=== PATIENT | male | born 1985 | race Caucasian/White ===

== ENCOUNTER → 2017-05-27 | Outpatient (CLI) | payer BC ==
--- NOTE | 2017-05-27 19:57 | US ---
EXAMINATION TYPE: US venous doppler duplex LE RT DATE OF EXAM: 05/27/2017 7:26 PM COMPARISON: NONE CLINICAL HISTORY: RLE R22.41 Swelling. SIDE PERFORMED: Right TECHNIQUE: The lower extremity deep venous system is examined utilizing real time linear array sonog elsa with graded compression, doppler sonography and color-flow sonography. VESSELS IMAGED: External Iliac Vein (EIV) Common Femoral Vein Deep Femoral Vein Greater Saphenous Vein * Femoral Vein Popliteal Vein Small Saphenous Vein * Proximal Calf Veins (* superficial vessels) Right Leg: Negative for DVT No evidence of DVT right leg IMPRESSION: Negative exam. No evidence of deep venous thrombosis in the right leg.
== END | disposition home or self-care (01) ==
LOC: RADUSMAIN 18:33
PROVIDERS: ATTEND Family Medicine
DX: R22.41 Localized swelling, mass and lump, right lower limb (principal)

== ENCOUNTER → 2018-12-28 | Outpatient (CLI) | payer BC ==
--- NOTE | 2018-12-29 07:47 | US ---
EXAMINATION TYPE: US venous doppler duplex LE RT DATE OF EXAM: 12/28/2018 6:39 PM COMPARISON: NONE CLINICAL HISTORY: R60.0 Localized edema,R25.2 Spasm. Right leg pain and spasm with edema. SIDE PERFORMED: Right TECHNIQUE: The lower extremity deep venous system is examined utilizing real time linear array sonog elsa with graded compression, doppler sonography and color-flow sonography. VESSELS IMAGED: External Iliac Vein (EIV) Common Femoral Vein Deep Femoral Vein Greater Saphenous Vein * Femoral Vein Popliteal Vein Small Saphenous Vein * Proximal Calf Veins (* superficial vessels) Right Leg: Negative for DVT No evidence of DVT right leg. IMPRESSION: 1. No diagnostic evidence of DVT as visualized.
== END | disposition home or self-care (01) ==
LOC: RADUSMAIN 18:06
PROVIDERS: ATTEND Family Medicine
DX: R60.0 Localized edema (principal); R25.2 Cramp and spasm

== ENCOUNTER 2019-01-16 22:15 | Emergency (ER) | payer BC ==
--- NOTE | 2019-01-16 23:48 | US ---
EXAM: US Duplex Right Lower Extremity Veins CLINICAL HISTORY: Pain in the right calf TECHNIQUE: Real-time duplex ultrasound scan of the right lower extremity veins integrating B-mode two-dimensional vascular structure, Doppler spectral analysis, color flow Doppler imaging and compression. COMPARISON: Ultrasound right lower extremity dated 05/27/2017 FINDINGS: Deep veins: Occlusive thrombus noted within the right popliteal vein. Superficial veins: Unremarkable. No thrombus in the visualized great saphenous vein. Soft tissues: No acute findings. No popliteal cyst. IMPRESSION: Occlusive thrombus noted within the right popliteal vein.
[2019-01-17] MEDS ORDERED: RIVAROXABAN 15 MG TAB PO STA (00:16)
--- NOTE | 2019-01-17 00:18 | ED ---
General Adult HPI - General Chief complaint: Extremity Injury, Lower Stated complaint: Leg Pain Time Seen by Provider: 01/17/19 00:06 Source: patient Mode of arrival: ambulatory Limitations: no limitations - History of Present Illness Initial comments: This patient is a 33-year-old man who presents with pain in his right calf that he states has come on over the past couple of weeks and has caused him to have concern about possible DVT. Patient indicates posterior aspect of the leg. Pain is aching, constant, worse with palpation. No fever or chills. The patient states that he had seen his physician and he also had an duplex Doppler of his leg between week and 2 weeks ago but the pain has not improved. -: days(s) Location: right, lower extremity Radiation: non-radiation Quality: aching Consistency: constant Improves with: none Worsens with: movement Associated Symptoms: denies other symptoms - Related Data Previous Rx's Medication Instructions Recorded Cephalexin [Keflex] 500 mg PO Q6HR #40 cap 04/08/15 Ibuprofen [Motrin] 600 mg PO Q6HR PRN #20 tab 04/08/15 Sulfamethox-Tmp 800-160Mg [Bactrim 2 each PO Q12HR #56 tab 04/08/15 DS 800-160 mg] Azithromycin [Zithromax Z-pack] 250 mg PO DIRECTED #6 tab 01/17/19 Ibuprofen 800 mg PO TID #20 tablet 01/17/19 Rivaroxaban [Xarelto] 15 mg PO BID #42 tab 01/17/19 Allergies Allergy/AdvReac Type Severity Reaction Status Date / Time No Known Allergies Allergy Verified 01/16/19 22:28 Review of Systems ROS Statement: Those systems with pertinent positive or pertinent negative responses have been documented in the HPI. ROS Other: All systems not noted in ROS Statement are negative. Constitutional: Denies: fever, chills Respiratory: Denies: cough, dyspnea Cardiovascular: Denies: chest pain, palpitations, edema, syncope Gastrointestinal: Denies: abdominal pain, nausea, vomiting, diarrhea Musculoskeletal: Denies: back pain Skin: Denies: rash Neurological: Denies: headache, weakness, numbness Past Medical History Past Medical History: No Reported History History of Any Multi-Drug Resistant Organisms: None Reported Past Surgical History: Hernia Repair Additional Past Surgical History / Comment(s): scope to right knee 2009, Past Psychological History: No Psychological Hx Reported Smoking Status: Never smoker Past Alcohol Use History: Occasional Past Drug Use History: None Reported General Exam Limitations: no limitations General appearance: alert, in no apparent distress Head exam: Present: atraumatic, normocephalic Eye exam: Present: normal appearance. Absent: scleral icterus, conjunctival injection ENT exam: Present: normal oropharynx Neck exam: Present: normal inspection Cardiovascular Exam: Present: regular rate, normal rhythm, normal heart sounds. Absent: systolic murmur, diastolic murmur, rubs, gallop GI/Abdominal exam: Present: soft. Absent: distended, tenderness, guarding, rebound, rigid, mass Extremities exam: Present: normal inspection, tenderness, normal capillary refill, calf tenderness (Right). Absent: pedal edema Back exam: Present: normal inspection. Absent: CVA tenderness (R), CVA tenderness (L) Neurological exam: Present: alert Skin exam: Present: warm, dry, intact, normal color. Absent: rash Course Vital Signs 01/16/19 01/17/19 22:24 03:24 Temperature 99.6 F 98.2 F Pulse Rate 119 H 99 Respiratory 17 20 Rate Blood Pressure 151/95 160/94 O2 Sat by Pulse 96 94 L Oximetry Medical Decision Making - Medical Decision Making Patient is a 33-year-old male, found to have right leg DVT. He is started on medication here and will continue this as outpatient. Given the patient's heart rate, CT of the chest is performed which does show a suspicious lung findings. Discussed this with the patient, and he states he was treated for pneumonia 2 weeks ago. I did express concern that this may reflect some element of PE though this was not definitely visualized on the computed tomography scan. The patient not having dyspnea, chest pain, or other chest symptoms. Patient states she does feel well and wants to continue as outpatient. Discussed appropriate further care and follow-up as well as return parameters. All questions answered. - Lab Data Result diagrams: 01/17/19 00:28 01/17/19 00:28 Lab Results 01/17/19 01/17/19 Range/Units 00:28 00:28 WBC 11.5 H (3.8-10.6) k/uL RBC 4.36 (4.30-5.90) m/uL Hgb 13.8 (13.0-17.5) gm/dL Hct 41.7 (39.0-53.0) % MCV 95.7 (80.0-100.0) fL MCH 31.7 (25.0-35.0) pg MCHC 33.2 (31.0-37.0) g/dL RDW 13.5 (11.5-15.5) % Plt Count 308 (150-450) k/uL Neutrophils % 77 % Lymphocytes % 14 % Monocytes % 5 % Eosinophils % 3 % Basophils % 0 % Neutrophils # 8.9 H (1.3-7.7) k/uL Lymphocytes # 1.6 (1.0-4.8) k/uL Monocytes # 0.6 (0-1.0) k/uL Eosinophils # 0.3 (0-0.7) k/uL Basophils # 0.0 (0-0.2) k/uL Sodium 139 (137-145) mmol/L Potassium 4.3 (3.5-5.1) mmol/L Chloride 105 (98-107) mmol/L Carbon Dioxide 22 (22-30) mmol/L Anion Gap 12 mmol/L BUN 14 (9-20) mg/dL Creatinine 0.92 (0.66-1.25) mg/dL Est GFR (CKD-EPI)AfAm >90 (>60 ml/min/1.73 sqM) Est GFR (CKD-EPI)NonAf >90 (>60 ml/min/1.73 sqM) Glucose 139 H (74-99) mg/dL Calcium 9.3 (8.4-10.2) mg/dL Total Bilirubin 1.3 (0.2-1.3) mg/dL AST 27 (17-59) U/L ALT 40 (21-72) U/L Alkaline Phosphatase 107 (38-126) U/L Total Protein 7.5 (6.3-8.2) g/dL Albumin 4.0 (3.5-5.0) g/dL Disposition Clinical Impression: DVT (deep venous thrombosis) Disposition: HOME SELF-CARE Condition: Good Instructions (If sedation given, give patient instructions): Deep Vein Thrombosis (DC) Prescriptions: Ibuprofen 800 mg PO TID #20 tablet Rivaroxaban [Xarelto] 15 mg PO BID #42 tab Azithromycin [Zithromax Z-pack] 250 mg PO DIRECTED #6 tab Is patient prescribed a controlled substance at d/c from ED?: No Referrals: Manish Christy MD [Primary Care Provider] - 1-2 days
[2019-01-17] MEDS ORDERED: MORPHINE SULFATE 4 MG/ML SYRINGE IV STA (00:22)
[2019-01-17 00:38] LABS: Basophils % (A) 0 %; Eosinophils # (A) 0.3 k/uL (0-0.7); Eosinophils % (A) 3 %; HCT 41.7 % (39.0-53.0); HGB 13.8 gm/dL (13.0-17.5); Lymphocytes # (A) 1.6 k/uL (1.0-4.8); Lymphocytes % (A) 14 %; MCH 31.7 pg (25.0-35.0); MCHC 33.2 g/dL (31.0-37.0); MCV 95.7 fL (80.0-100.0); Mean Platelet Volume 6.5; Monocytes # (A) 0.6 k/uL (0-1.0); Monocytes % (A) 5 %; Neutrophils # (A) 8.9 k/uL (1.3-7.7); Neutrophils % (A) 77 %; Platelet Count 308 k/uL (150-450); RBC 4.36 m/uL (4.30-5.90); RDW 13.5 % (11.5-15.5); WBC 11.5 k/uL (3.8-10.6)
[2019-01-17 00:49] LABS: ALT 40 U/L (21-72); AST 27 U/L (17-59); Alkaline Phosphatase 107 U/L (38-126); Anion Gap 12 mmol/L; Blood Urea Nitrogen 14 mg/dL (9-20); Calcium 9.3 mg/dL (8.4-10.2); Carbon Dioxide 22 mmol/L (22-30); Chloride 105 mmol/L (98-107); Glucose 139 mg/dL (74-99); Potassium 4.3 mmol/L (3.5-5.1); Sodium 139 mmol/L (137-145); Total Bilirubin 1.3 mg/dL (0.2-1.3); Total Protein 7.5 g/dL (6.3-8.2)
--- NOTE | 2019-01-17 01:02 | CT ---
EXAM: CT Angiography Chest With Intravenous Contrast CLINICAL HISTORY: Pain TECHNIQUE: Axial computed tomographic angiography images of the chest with intravenous contrast using pulmonary embolism protocol. CTDI is 15 mGy and DLP is 1223 mGy-cm. This CT exam was performed using one or more of the following dose reduction techniques: automated exposure control, adjustment of the mA and/or kV according to patient size, and/or use of iterative reconstruction technique. MIP reconstructed images were created and reviewed. COMPARISON: No relevant prior studies available. FINDINGS: Pulmonary arteries: No evidence of central pulmonary embolus. Segmental and subsegmental pulmonary arteries cannot be confidently evaluated secondary to timing of the IV contrast bolus. Aorta: No acute findings. No thoracic aortic aneurysm. Lungs: Reticular and groundglass opacities with patchy consolidation within the right middle lobe and right lower lobe, which may represent an inflammatory or infectious process. Probable atelectasis and scarring within anterior left lower lobe. Pleural space: Unremarkable. No significant effusion. No pneumothorax. Heart: Unremarkable. No cardiomegaly. No significant pericardial effusion. No evidence of RV dysfunction. Bones/joints: No acute fracture. No dislocation. Soft tissues: Unremarkable. Lymph nodes: Unremarkable. No enlarged lymph nodes. Liver: Decreased attenuation of the liver which may be phase of IV contrast versus hepatic steatosis. IMPRESSION: 1. No evidence of central pulmonary embolus. Segmental and subsegmental pulmonary arteries cannot be confidently evaluated secondary to timing of the IV contrast bolus. 2. Reticular and groundglass opacities with patchy consolidation within the right middle lobe and right lower lobe, which may represent an inflammatory or infectious process.
[2019-01-17] MEDS ORDERED: AZITHROMYCIN 500 MG TAB PO STA (01:55)
[2019-01-17 03:30] VITALS: BP 160/94; PULSE 99; RESP 20; TEMP 98.2
--- NOTE | 2019-01-18 04:45 | CDI ---
Documentation Clarification OP Dear Javan VANG MD Please do addendum to ED report for missing HPI and Physical examination. Thank you, Ayaka Person Marketing Instructor If you have any questions, please contact Air Pollution Specialist at [phone] [facility]
== END 2019-01-17 03:24 | disposition home or self-care (01) ==
LOC: EC 22:15
DX: I82.401 Acute embolism and thrombosis of unspecified deep veins of right lower extremity (principal); Z87.01 Personal history of pneumonia (recurrent)
CPT/HCPCS: 36415; 80053; 85025; 93971; 71275; 99284; 96365; 96375; J2270; J0696; Q9967

== ENCOUNTER 2020-12-08 15:39 | Emergency (ER) | payer BC ==
--- NOTE | 2020-12-08 17:16 | US ---
EXAMINATION TYPE: US venous doppler duplex LE LT DATE OF EXAM: 12/08/2020 5:07 PM COMPARISON: RT US CLINICAL HISTORY: pain. EC patient with skin redness and pain today left lower extremity. No longer o n blood thinner for prior DVT rt leg. SIDE PERFORMED: Left TECHNIQUE: The lower extremity deep venous system is examined utilizing real time linear array sonog elsa with graded compression, doppler sonography and color-flow sonography. VESSELS IMAGED: Common Femoral Vein Deep Femoral Vein Greater Saphenous Vein * Femoral Vein Popliteal Vein Small Saphenous Vein * Proximal Calf Veins (* superficial vessels) Left Leg: Negative for DVT IMPRESSION: No evidence of left lower extremity DVT.
--- NOTE | 2020-12-08 17:25 | ED ---
Extremity Problem HPI - General Chief complaint: Extremity Problem,Nontraumatic Stated complaint: leg pain/ history of blood clots Time Seen by Provider: 12/08/20 16:43 Source: patient Mode of arrival: ambulatory Limitations: no limitations - History of Present Illness Initial comments: Patient is a 35-year-old male presenting to emergency Department with complaints of some mild pain and discomfort in his left calf for the last 2 days. Patient states he noticed some discomfort on Wednesday night and then noticed a little bit of redness to the area. He does have history of right lower leg DVT proximally 2 years ago, he was on blood thinners for about 8 months, then they discontinued. He has had cellulitis as well in the past. He denies any fevers or chills, no nausea or vomiting. He denies any chest pain or stress of breath, no cough, no recent travel. He denies any injuries or trauma to the leg. He has no further complaints at this time. - Related Data Previous Rx's Medication Instructions Recorded Cephalexin [Keflex] 500 mg PO Q6HR #40 cap 04/08/15 Ibuprofen [Motrin] 600 mg PO Q6HR PRN #20 tab 04/08/15 Sulfamethox-Tmp 800-160Mg [Bactrim 2 each PO Q12HR #56 tab 04/08/15 DS 800-160 mg] Azithromycin [Zithromax Z-pack (6 250 mg PO DIRECTED #6 tab 01/17/19 tabs)] Ibuprofen 800 mg PO TID #20 tablet 01/17/19 Rivaroxaban [Xarelto] 15 mg PO BID #42 tab 01/17/19 Cephalexin [Keflex] 500 mg PO Q6HR 7 Days #28 cap 12/08/20 Allergies Allergy/AdvReac Type Severity Reaction Status Date / Time No Known Allergies Allergy Verified 12/08/20 15:43 Review of Systems ROS Statement: Those systems with pertinent positive or pertinent negative responses have been documented in the HPI. ROS Other: All systems not noted in ROS Statement are negative. Past Medical History Past Medical History: No Reported History Additional Past Medical History / Comment(s): cellulitis, hx of DVT History of Any Multi-Drug Resistant Organisms: None Reported Past Surgical History: Hernia Repair Additional Past Surgical History / Comment(s): scope to right knee 2008, Past Psychological History: No Psychological Hx Reported Smoking Status: Never smoker Past Alcohol Use History: Occasional Past Drug Use History: None Reported General Exam - General Exam Comments Initial Comments: GENERAL: Patient is well-developed and well-nourished. Patient is nontoxic and in no acute distress. HEAD: Atraumatic, normocephalic. EYES: Pupils equal round and reactive to light, extraocular movements intact, sclera anicteric, conjunctiva are normal. Eyelids were unremarkable. ENT: Nares patent, oropharynx clear without exudates. Moist mucous membranes. NECK: Normal range of motion, supple without lymphadenopathy or JVD. LUNGS: Unlabored respirations. Breath sounds clear to auscultation bilaterally and equal. No wheezes rales or rhonchi. HEART: Regular rate and rhythm without murmurs, rubs or gallops. ABDOMEN: Soft, nontender, normoactive bowel sounds. No guarding, no rebound. No masses appreciated. : Deferred MUSCULOSKELETAL: Normal extremities with adequate strength and normal range of motion, no pitting or edema. No clubbing or cyanosis. NEUROLOGICAL: Patient is alert and oriented x 3. Motor and sensory are also intact. Cranial nerves II through XII grossly intact. Symmetrical smile. Normal speech, normal gait. PSYCH: Normal mood, normal affect. SKIN: Warm, Dry, normal turgor. Patient does have some very mild erythema noted of the left posterior lower leg, there is warmth to touch, very mild pain with palpation. No spreading or streaking erythema. Limitations: no limitations Course Vital Signs 12/08/20 15:40 Temperature 97.5 F L Pulse Rate 84 Respiratory 20 Rate Blood Pressure 175/91 O2 Sat by Pulse 99 Oximetry Medical Decision Making - Medical Decision Making Patient is a 35-year-old male presenting with some mild pain, erythema of his left calf for the past 2 days. He does have history of right lower leg DVT approximately 2 years ago, was on thinners for 8 months. He also has history of cellulitis. No fevers, no chest pain or shortness of breath. Ultrasound of the left lower extremity reveals no evidence for DVT. Patient will be started on Keflex for possible cellulitis. Patient will follow up with his PCP. He is in agreement with this plan of care and is stable for discharge. Disposition Clinical Impression: Cellulitis of left lower leg Disposition: HOME SELF-CARE Condition: Stable Instructions (If sedation given, give patient instructions): Cellulitis (ED) Additional Instructions: Please return to the Emergency Department if symptoms worsen or any other concerns. Take antibiotic as prescribed. Follow-up with your PCP in 1-3 days. Prescriptions: Cephalexin [Keflex] 500 mg PO Q6HR 7 Days #28 cap Is patient prescribed a controlled substance at d/c from ED?: No Referrals: Manish Christy MD [Primary Care Provider] - 1-2 days Time of Disposition: 17:24
[2020-12-08 17:52] VITALS: BP 151/98; PULSE 70; RESP 17; TEMP 97.9
== END 2020-12-08 17:51 | disposition home or self-care (01) ==
LOC: EC 15:39
DX: L03.116 Cellulitis of left lower limb (principal); Z86.718 Personal history of other venous thrombosis and embolism
CPT/HCPCS: 99283

== ENCOUNTER 2021-02-16 17:02 | Observation (INO) | payer BC ==
[2021-02-16] MEDS ORDERED: ASPIRIN 81 MG PO STA (17:19)
--- NOTE | 2021-02-16 17:27 | ED ---
Chest Pain HPI - General Chief Complaint: Chest Pain Stated Complaint: muscle pain in chest Time Seen by Provider: 02/16/21 17:08 Source: patient Mode of arrival: ambulatory Limitations: no limitations - History of Present Illness Initial Comments: 35-year-old male with history of hypertension, DVT presents to the emergency department with a chief complaint of chest pain. States the pain started about 2 weeks ago and is localized to the left side of the chest without any radiation. States it feels more of a discomfort rather than a pain. He denies any associated light headedness, dizziness, diaphoretic episodes, nausea, vomiting, visual changes, headaches, wanted weakness or paresthesias. He reports some of the pain is exacerbated with abduction of the arm. He denies any recent exercise or working more extensively than usual. There is family history of cardiac-related before 65. He denies any abdominal or back pain. States he did not take his blood pressure medication today. - Related Data Home Medications Medication Instructions Recorded Confirmed Bisoprolol/Hydrochlorothiazide 1 tab PO DAILY 02/16/21 02/16/21 [Bisoprolol/Hydrochlorothiazide 10-6.25 mg] Losartan Potassium 50 mg PO DAILY 02/16/21 02/16/21 Multivitamins, Thera [Multivitamin 1 tab PO DAILY 02/16/21 02/16/21 (formulary)] Allergies Allergy/AdvReac Type Severity Reaction Status Date / Time No Known Allergies Allergy Verified 02/16/21 17:55 Review of Systems ROS Statement: Those systems with pertinent positive or pertinent negative responses have been documented in the HPI. ROS Other: All systems not noted in ROS Statement are negative. EKG Findings - EKG Comments: EKG Findings:: Sinus rhythm. Ventricular rate 94, ME 156, QRS 80, QTC 440. Past Medical History Past Medical History: Hypertension Additional Past Medical History / Comment(s): cellulitis, hx of DVT History of Any Multi-Drug Resistant Organisms: None Reported Past Surgical History: Hernia Repair Additional Past Surgical History / Comment(s): scope to right knee 2009, Past Psychological History: No Psychological Hx Reported Smoking Status: Never smoker Past Alcohol Use History: Occasional Past Drug Use History: None Reported General Exam Limitations: no limitations General appearance: alert, in no apparent distress, obese Head exam: Present: atraumatic, normocephalic, normal inspection Eye exam: Present: normal appearance, PERRL, EOMI Pupils: Present: normal accommodation ENT exam: Present: normal exam, normal oropharynx, mucous membranes moist Neck exam: Present: normal inspection, full ROM. Absent: tenderness, lymphadenopathy Respiratory exam: Present: normal lung sounds bilaterally. Absent: respiratory distress, wheezes, rales, rhonchi, stridor Cardiovascular Exam: Present: regular rate, normal rhythm, normal heart sounds. Absent: systolic murmur GI/Abdominal exam: Present: soft. Absent: distended, tenderness, guarding, rebound Extremities exam: Present: normal inspection, full ROM, normal capillary refill. Absent: tenderness, pedal edema, joint swelling Back exam: Present: normal inspection, full ROM. Absent: tenderness, CVA tenderness (R), CVA tenderness (L) Neurological exam: Present: alert, oriented X3, CN II-XII intact, normal gait Psychiatric exam: Present: normal affect, normal mood Skin exam: Present: warm, dry, intact, normal color Course Vital Signs 02/16/21 17:03 Temperature 98.6 F Pulse Rate 72 Respiratory 20 Rate Blood Pressure 190/110 O2 Sat by Pulse 100 Oximetry Chest Pain MDM - MDM 35-year-old male with history of hypertension, DVT presents to the emergency department with a chief complaint of chest pain. On physical examination, patient is well-appearing and resting comfortably in bed. Patient is hypertensive because he did not take his morning medication. Negative cardiac workup. Considering the patient's history, he will be admitted for cardiac observation. Case discussed with Dr. Quintanilla Admitting physician is Dr. Araujo Cardiology consult Disposition Clinical Impression: Chest pain Disposition: ADMITTED IP TO THIS HOSP Condition: Stable Instructions (If sedation given, give patient instructions): Chest Pain (ED) Is patient prescribed a controlled substance at d/c from ED?: No Referrals: Manish Christy MD [Primary Care Provider] - 1-2 days Time of Disposition: 18:55
[2021-02-16 17:49] LABS: Basophils % (A) 1 %; Eosinophils # (A) 0.2 k/uL (0-0.7); Eosinophils % (A) 3 %; HGB 15.4 gm/dL (13.0-17.5); Lymphocytes # (A) 2.2 k/uL (1.0-4.8); Lymphocytes % (A) 27 %; MCH 33.8 pg (25.0-35.0); MCV 96.4 fL (80.0-100.0); Mean Platelet Volume 6.9; Monocytes # (A) 0.4 k/uL (0-1.0); Monocytes % (A) 6 %; Neutrophils # (A) 4.9 k/uL (1.3-7.7); Neutrophils % (A) 62 %; Platelet Count 234 k/uL (150-450); RBC 4.56 m/uL (4.30-5.90); RDW 12.9 % (11.5-15.5); WBC 7.9 k/uL (3.8-10.6)
[2021-02-16 17:58] LABS: ALT 95 U/L (4-49); AST 55 U/L (17-59); African American GFR (CKD) >90 (>60 ml/min/1.73 sqM); Albumin 4.4 g/dL (3.5-5.0); Alkaline Phosphatase 89 U/L (38-126); Anion Gap 8 mmol/L; Blood Urea Nitrogen 15 mg/dL (9-20); Calcium 9.3 mg/dL (8.4-10.2); Carbon Dioxide 28 mmol/L (22-30); Chloride 105 mmol/L (98-107); Glucose 113 mg/dL (74-99); Magnesium 1.9 mg/dL (1.6-2.3); Non-African American GFR(CKD) >90 (>60 ml/min/1.73 sqM); Sodium 141 mmol/L (137-145); Total Bilirubin 0.7 mg/dL (0.2-1.3); Total Protein 7.4 g/dL (6.3-8.2)
[2021-02-16 18:04] LABS: INR 0.9 (<1.2); Partial Thromboplastin Time 22.4 sec (22.0-30.0); Prothrombin Time 9.7 sec (9.0-12.0)
[2021-02-16 18:06] LABS: Potassium 4.6 mmol/L (3.5-5.1)
--- NOTE | 2021-02-16 18:10 | XR ---
EXAMINATION TYPE: XR chest 2V DATE OF EXAM: 02/16/2021 COMPARISON: NONE HISTORY: Left sided pain TECHNIQUE: 2 views FINDINGS: Heart and mediastinum are normal. There is some atelectasis at the lung bases. There is no heart failure. There is poor inspiration. There are no hilar masses. Bony thorax is intact IMPRESSION: Poor inspiration with some mild atelectasis at the lung bases. Normal heart.
[2021-02-16] MEDS ORDERED: NITROGLYCERIN SL TABS 0.4 MG TAB SUBLINGUAL PRN (18:46)
[2021-02-16] MEDS ORDERED: hydrALAZINE HCL 25 MG TAB PO PRN (21:04)
[2021-02-16] MEDS ORDERED: BISOPROLOL-HCTZ 10-6.25 MG 1 EACH TAB PO SCH (21:15)
[2021-02-16 21:45] VITALS: RESP 18
[2021-02-17] MEDS: METOPROLOL TARTRATE 25 MG TAB PO SCH ×3 (01:55→08:44)
[2021-02-17] MEDS: LOSARTAN 50 MG TAB PO SCH ×3 (01:55→08:43)
[2021-02-17] MEDS: hydroCHLOROthiazide 25 MG TAB PO SCH ×3 (01:55→08:43)
[2021-02-17] MEDS: FAMOTIDINE 20 MG/2 ML VIAL IV SCH ×2 (02:01→08:44)
[2021-02-17] MEDS: HEPARIN SODIUM,PORCINE/PF 5,000 UNIT/0.5 ML SYRINGE SQ SCH ×2 (02:05→08:46)
--- NOTE | 2021-02-17 08:00 | P.HPIM ---
History of Present Illness H&P Date: 02/17/21 Chief Complaint: Left-sided chest pain. This is a history of physical 35-year-old white male with history of hypertension who states for the last several weeks he's been having left-sided pectoralis type pain. It is a dull ache. It does not necessarily get worse with movement. There is family history of atrial fibrillation and congestive heart failure and his father. The patient states the pain was getting worse no nausea no diaphoresis no radiation. However because the pain started becoming more intense he is appropriately admitted to rule out type myocardial inf arction. Review of Systems Constitutional: Denies chills, Denies fever Eyes: denies blurred vision, denies pain Ears, nose, mouth and throat: Denies headache, Denies sore throat Cardiovascular: Reports chest pain Respiratory: Denies cough Gastrointestinal: Denies abdominal pain, Denies diarrhea, Denies nausea, Denies vomiting Musculoskeletal: Denies myalgias Past Medical History Past Medical History: Hypertension Additional Past Medical History / Comment(s): cellulitis, hx of DVT History of Any Multi-Drug Resistant Organisms: None Reported Past Surgical History: Hernia Repair Additional Past Surgical History / Comment(s): scope to right knee 2008, Past Psychological History: No Psychological Hx Reported Smoking Status: Never smoker Past Alcohol Use History: Occasional Past Drug Use History: None Reported Medications and Allergies Home Medications Medication Instructions Recorded Confirmed Type Bisoprolol/Hydrochlorothiazide 1 tab PO DAILY 02/16/21 02/16/21 History [Bisoprolol/Hydrochlorothiazide 10-6.25 mg] Losartan Potassium 50 mg PO DAILY 02/16/21 02/16/21 History Multivitamins, Thera [Multivitamin 1 tab PO DAILY 02/16/21 02/16/21 History (formulary)] Allergies Allergy/AdvReac Type Severity Reaction Status Date / Time No Known Allergies Allergy Verified 02/16/21 17:55 Physical Exam Vitals: Vital Signs Temp Pulse Resp BP Pulse Ox 02/17/21 06:00 62 18 144/90 98 02/17/21 00:00 86 18 151/93 98 02/16/21 20:06 78 18 152/89 96 02/16/21 17:03 98.6 F 72 20 190/110 100 Intake and Output 02/16/21 02/17/21 02/17/21 22:59 06:59 14:59 Other: Weight 190.509 kg - Constitutional General appearance: average body habitus, morbidly obese, no acute distress - EENT Eyes: EOMI - Neck Neck: no lymphadenopathy - Respiratory Respiratory: bilateral: CTA - Cardiovascular Rhythm: regular Heart sounds: normal: S1, S2 Abnormal Heart Sounds: no S3 Gallop - Gastrointestinal General gastrointestinal: soft, no tenderness - Integumentary Integumentary: no cellulitis - Neurologic Neurologic: CNII-XII intact - Psychiatric Psychiatric: A&O x's 3, appropriate affect Results CBC & Chem 7: 02/16/21 17:23 02/16/21 17:23 Labs: Abnormal Lab Results - Last 24 Hours (Table) 02/16/21 Range/Units 17:23 Glucose 113 H (74-99) mg/dL ALT 95 H (4-49) U/L Assessment and Plan (1) Chest pain Current Visit: Yes Status: Acute Code(s): R07.9 - CHEST PAIN, UNSPECIFIED SNOMED Code(s): 72351604 Plan: Rule out myocardial infraction with his chest pressure. Reconcile home medications. Await cardiology input for probable stress testing.
[2021-02-17 08:43] VITALS: BP 148/93
[2021-02-17] MEDS ORDERED: ASPIRIN 325 MG TAB PO SCH (09:00)
--- NOTE | 2021-02-17 09:04 | P.CRDCN ---
History of Present Illness Consult date: 02/17/21 Chief complaint: Chest pain History of present illness: This is a 35-year-old gentleman with a past medical history significant for hypertension without any other comorbidities like diabetes or dyslipidemia or smoking presented to the emergency department complaining of chest discomfort. The discomfort started a few weeks ago. The patient is pointing into a spot on the left side of the chest where the pain is a sharp kind of discomfort without any radiation and without any associated symptoms. More importantly the pain is very positional and its reproduced by cough or sneezing or bloating a pressure on the chest. No shortness of breath. No dizziness or lightheadedness. No sweating. No feeling of heart racing or fluttering or presyncope or syncope. No coronary artery disease or congestive heart failure or cardiac arrhythmia. The EKG showed sinus rhythm without any significant ST or T-wave abnormalities. 3 sets of cardiac enzymes were checked and came in to be unremarkable. The chest x-ray did not show any acute abnormalities. The patient currently is chest pain-free. He would like to go home and sees a physician as an outpatient for potential stenosis as an outpatient. Overall the chest discomfort to me looks like non-cardiac chest discomfort. Past Medical History Past Medical History: Hypertension Additional Past Medical History / Comment(s): cellulitis, hx of DVT History of Any Multi-Drug Resistant Organisms: None Reported Past Surgical History: Hernia Repair Additional Past Surgical History / Comment(s): scope to right knee 2008, Past Psychological History: No Psychological Hx Reported Smoking Status: Never smoker Past Alcohol Use History: Occasional Past Drug Use History: None Reported Medications and Allergies Home Medications Medication Instructions Recorded Confirmed Type Bisoprolol/Hydrochlorothiazide 1 tab PO DAILY 02/16/21 02/16/21 History [Bisoprolol/Hydrochlorothiazide 10-6.25 mg] Losartan Potassium 50 mg PO DAILY 02/16/21 02/16/21 History Multivitamins, Thera [Multivitamin 1 tab PO DAILY 02/16/21 02/16/21 History (formulary)] Allergies Allergy/AdvReac Type Severity Reaction Status Date / Time No Known Allergies Allergy Verified 02/16/21 17:55 Physical Exam Vitals: Vital Signs Temp Pulse Resp BP Pulse Ox 02/17/21 08:40 67 18 148/93 96 02/17/21 06:00 62 18 144/90 98 02/17/21 00:00 86 18 151/93 98 02/16/21 20:06 78 18 152/89 96 02/16/21 17:03 98.6 F 72 20 190/110 100 Intake and Output 02/16/21 02/17/21 02/17/21 22:59 06:59 14:59 Other: Weight 190.509 kg - Constitutional General appearance: no acute distress - Respiratory Respiratory: bilateral: diminished - Cardiovascular Rhythm: regular Heart sounds: normal: S1, S2 Results 02/16/21 17:23 02/16/21 17:23 Cardiac Enzymes 02/16/21 02/16/21 02/16/21 Range/Units 17:23 17:23 20:43 AST 55 (17-59) U/L Troponin I <0.012 <0.012 (0.000-0.034) ng/mL 02/16/21 Range/Units 23:40 AST (17-59) U/L Troponin I <0.012 (0.000-0.034) ng/mL Coagulation 02/16/21 Range/Units 17:23 PT 9.7 (9.0-12.0) sec APTT 22.4 (22.0-30.0) sec CBC 02/16/21 Range/Units 17:23 WBC 7.9 (3.8-10.6) k/uL RBC 4.56 (4.30-5.90) m/uL Hgb 15.4 (13.0-17.5) gm/dL Hct 44.0 (39.0-53.0) % Plt Count 234 (150-450) k/uL Comprehensive Metabolic Panel 02/16/21 Range/Units 17:23 Sodium 141 (137-145) mmol/L Potassium 4.6 (3.5-5.1) mmol/L Chloride 105 (98-107) mmol/L Carbon Dioxide 28 (22-30) mmol/L BUN 15 (9-20) mg/dL Creatinine 0.90 (0.66-1.25) mg/dL Glucose 113 H (74-99) mg/dL Calcium 9.3 (8.4-10.2) mg/dL AST 55 (17-59) U/L ALT 95 H (4-49) U/L Alkaline Phosphatase 89 (38-126) U/L Total Protein 7.4 (6.3-8.2) g/dL Albumin 4.4 (3.5-5.0) g/dL Current Medications Generic Name Dose Route Start Last Admin Trade Name Bebo PRN Reason Stop Dose Admin Aspirin 325 mg 02/17/21 09:00 02/17/21 08:44 Aspirin 325 Mg Tab PO 325 mg DAILY MARLON Administration Famotidine 20 mg 02/16/21 21:15 02/17/21 08:44 Famotidine 20 Mg/2 Ml Vial IV 20 mg Q12HR MARLON Administration Heparin Sodium (Porcine) 5,000 unit 02/16/21 21:15 02/17/21 08:46 Heparin Sodium,Porcine/Pf 5,000 Unit/0.5 Ml Syringe SQ 5,000 unit Q12HR MARLON Administration Hydralazine HCl 25 mg 02/16/21 21:04 02/17/21 08:44 Hydralazine Hcl 25 Mg Tab PO 25 mg QID PRN Administration Blood Pressure - High Hydrochlorothiazide 6.25 mg 02/16/21 21:15 02/17/21 08:43 Hydrochlorothiazide 25 Mg Tab PO 6.25 mg DAILY MARLON Administration Losartan Potassium 50 mg 02/16/21 21:15 02/17/21 08:43 Losartan 50 Mg Tab PO 50 mg DAILY MARLON Administration Metoprolol Tartrate 25 mg 02/16/21 21:15 02/17/21 08:44 Metoprolol Tartrate 25 Mg Tab PO 25 mg BID MARLON Administration Nitroglycerin 0.4 mg 02/16/21 18:46 Nitroglycerin Sl Tabs 0.4 Mg Tab SUBLINGUAL Q5M PRN Chest Pain Intake and Output 02/16/21 02/17/21 02/17/21 22:59 06:59 14:59 Other: Weight 190.509 kg 02/16/21 17:23 02/16/21 17:23 Assessment and Plan Assessment: Assessment #1 noncardiac chest pain #2 hypertension Plan #1 acute coronary event was ruled out #2 pulmonary embolism was ruled out #3 from the cardiac standpoint the patient can be discharged home
--- NOTE | 2021-02-17 12:30 | P.DS ---
Providers Date of admission: 02/16/21 18:46 Attending physician: Manish Christy Consults: 02/16/21 18:46 Consult Physician Urgent Consulting Provider: Raul Encinas Consult Reason/Comments: Chest pain Do you want consulting provider notified?: Yes Primary care physician: Manish Christy - Discharge Diagnosis(es) (1) Chest pain Current Visit: Yes Status: Acute Hospital Course: The patient was addmitted for left sided atypical chest pain. PE and DC was rulled out. Cardiology was consulted and the patient was stabilized with no ncardiac chest pain diagnosis. followup in 5-7 days. Patient Condition at Discharge: Stable Plan - Discharge Summary New Discharge Prescriptions: New hydrALAZINE HCL [Apresoline] 25 mg PO QID PRN #120 tab PRN Reason: Blood Pressure - High hydroCHLOROthiazide [Hydrodiuril] 6.25 mg PO DAILY #30 tab Metoprolol Tartrate [Lopressor] 25 mg PO BID #60 tab Aspirin 325 mg PO DAILY tab Nitroglycerin Sl Tabs [Nitrostat] 0.4 mg SUBLINGUAL Q5M PRN #50 tab PRN Reason: Chest Pain Continue Losartan Potassium 50 mg PO DAILY Discontinued Bisoprolol/Hydrochlorothiazide [Bisoprolol/Hydrochlorothiazide 10-6.25 mg] 1 tab PO DAILY No Action Multivitamins, Thera [Multivitamin (formulary)] 1 tab PO DAILY Discharge Medication List Losartan Potassium 50 mg PO DAILY 02/16/21 [History] Multivitamins, Thera [Multivitamin (formulary)] 1 tab PO DAILY 02/16/21 [History] Aspirin 325 mg PO DAILY tab 02/17/21 [Rx] Metoprolol Tartrate [Lopressor] 25 mg PO BID #60 tab 02/17/21 [Rx] Nitroglycerin Sl Tabs [Nitrostat] 0.4 mg SUBLINGUAL Q5M PRN #50 tab 02/17/21 [Rx] hydrALAZINE HCL [Apresoline] 25 mg PO QID PRN #120 tab 02/17/21 [Rx] hydroCHLOROthiazide [Hydrodiuril] 6.25 mg PO DAILY #30 tab 02/17/21 [Rx] Follow up Appointment(s)/Referral(s): Raul Encinas MD [STAFF PHYSICIAN] - 2 Weeks Manish Christy MD [Primary Care Provider] - 1-2 days Patient Instructions/Handouts: Chest Pain (ED)
[2021-02-17 13:45] VITALS: PULSE 70; TEMP 98.3
[2021-02-17 18:54] LABS: Chol/HDL Ratio 6.03; LDL Cholesterol,Calculated 136.6 mg/dL (0.0-131.0); VLDL Calculation 49.4 mg/dL (5.00-40.00)
== END 2021-02-17 13:45 | disposition home or self-care (01) ==
LOC: EC 17:02 → 1SOBS 18:46 → 6NMEDSUR 20:08 → 1SOBS 02-17 13:26
PROVIDERS: ADMIT Family Medicine; ATTEND Family Medicine
DX: R07.89 Other chest pain (principal); I10 Essential (primary) hypertension; M79.10 Myalgia, unspecified site; E66.01 Morbid (severe) obesity due to excess calories; Z68.43 Body mass index [BMI] 50.0-59.9, adult; Z20.822 Contact with and (suspected) exposure to COVID-19; Z86.718 Personal history of other venous thrombosis and embolism; Z86.19 Personal history of other infectious and parasitic diseases; Z79.899 Other long term (current) drug therapy; Z82.49 Family history of ischemic heart disease and other diseases of the circulatory system
CPT/HCPCS: 96376; 96374; 99285; 36415; 93005 ×2; 85379; 80061; 80053; 83735; 84484; 85025; 85610; 85730; 87635; 71046; G0378 ×4; J1644

== ENCOUNTER → 2021-04-15 | Outpatient (CLI) | payer BC ==
--- NOTE | 2021-04-15 12:51 | ECHOF ---
Referral Reason:I10 HTN MEASUREMENTS -------- HEIGHT: 193.0 cm WEIGHT: 190.5 kg BP: RVIDd: 3.6 cm (< 3.3) IVSd: 1.1 cm (0.6 - 1.1) LVIDd: 5.1 cm (3.9 - 5.3) LVPWd: 1.3 cm (0.6 - 1.1) IVSs: 1.3 cm LVIDs: 4.2 cm LVPWs: 1.5 cm LA Diam: 3.2 cm (2.7 - 3.8) Ao Diam: 3.4 cm (2.0 - 3.7) AV Cusp: 2.0 cm (1.5 - 2.6) MV EXCURSION: 15.228 mm (> 18.000) MV EF SLOPE: 77 mm/s (70 - 150) MV E Jose G: 0.66 m/s MV DecT: 232 ms MV A Jose G: 0.53 m/s MV E/A Ratio: 1.24 RAP: 5.00 mmHg RVSP: 26.25 mmHg FINDINGS -------- Sinus rhythm. Morbid Obesity This was a techncally difficult study with suboptimal views, , Lumason utilized for enhancement of images. The left ventricular size is normal. There is borderline concentric left ventricular hypertrophy. Overall left ventricular systolic function is normal with, an EF between 55 - 60 %. The RV was not well visualized. The left atrial size is normal. The right atrial size is normal. 5.0mg OF Lumason UTLIZED: 2 OR MORE WALL SEGMENTS NOT VISUALIZED. The aortic valve was not well visualized. The mitral valve was not well visualized. The tricuspid valve was not well visualized. Unable to estimate RVSP due to inadequate TR jet spect ral doppler profile. The pulmonic valve was not well visualized. The aortic root size is normal. There is no pericardial effusion. CONCLUSIONS -------- 1. There is borderline concentric left ventricular hypertrophy. 2. Overall left ventricular systolic function is normal with, an EF between 55 - 60 %. 3. The left atrial size is normal. 4. 5.0mg OF Lumason UTLIZED: 2 OR MORE WALL SEGMENTS NOT VISUALIZED. 5. The aortic valve was not well visualized. 6. The mitral valve was not well visualized. 7. The tricuspid valve was not well visualized. 8. There is no pericardial effusion. INCINERATOR OPERATOR: Annie Rios RDCS
--- NOTE | 2021-04-15 16:10 | ECHOS ---
STRESS ECHOCARDIOGRAM DATE OF SERVICE: 04/15/21 INDICATIONS: Chest pain BASELINE HEART RATE: 87 BASELINE BLOOD PRESSURE: 172/93 MAXIMUM HEART RATE: 156 MAXIMUM BLOOD PRESSURE: 266/75 85% MPHR: 156 100% MPHR: 184 METS: 7.7 MAXIMUM STAGE REACHED: 3 TOTAL EXERCISE TIME: 6:46 RESULTS: Baseline rhythm sinus mechanism, rate of 87, normal axis, intervals. Poor R wave progression. Baseline blood pressure 172/93 mmHg. Patient exercised on [place] protocol for 6 minutes 46 seconds reaching peak rate of 156 beats per minute which is equal to 85% maximum predicted heart rate. Peak blood pressure 253/150 mmHg. Test was terminated secondary to fatigue. There was no chest pain. Electrocardiograph monitoring revealed no evidence of diagnostic ischemic ST deviation. FINDINGS: Baseline echocardiogram revealed normal wall motion. At peak exercise, there was normal wall motion augmentation with no hypokinesis or dyskinesis. CONCLUSION: 1. Decreased exercise tolerance with normal echocardiograph response to exercise. 2. Hypertensive response to exercise. 3. Normal stress echocardiogram with no evidence of stress-induced ischemia. MMODL / IJN: [id number] /
== END | disposition home or self-care (01) ==
LOC: RADNMMAIN 10:04
PROVIDERS: ATTEND Internal Medicine Interventional Cardiology
DX: I51.7 Cardiomegaly (principal); I10 Essential (primary) hypertension; E66.01 Morbid (severe) obesity due to excess calories
CPT/HCPCS: 93306; 93351; Q9950

== ENCOUNTER → 2022-04-07 | Outpatient (CLI) | payer BC ==
--- NOTE | 2022-04-07 08:29 | US ---
EXAMINATION TYPE: US abdomen complete DATE OF EXAM: 04/07/2022 COMPARISON: NONE CLINICAL HISTORY: R94.5 abnormal liver function tests. Elevated LFT's Limited due to patient being morbidly obese EXAM MEASUREMENTS: Liver Length: 21.2 cm Gallbladder Wall: 0.20 cm CBD: 0.24 cm Spleen: 12.6 cm Right Kidney: 13.4 x 5.9 x 6.5 cm Left Kidney: 13.1 x 6.8 x 6.8 cm Pancreas: Obscured by bowel gas Liver: Limited visualization. Difficult to penetrate Gallbladder: wnl Evidence for sonographic Gallagher's sign: No CBD: wnl Spleen: wnl Right Kidney: wnl Left Kidney: wnl Upper IVC: Not visualized Abd Aorta: Partially obscured by bowel gas IMPRESSION: 1. Limited exam as discussed above demonstrates increased echo pattern to the liver which can be asso ciated with hepatic steatosis or hepatocellular disease correlate clinically.
== END | disposition home or self-care (01) ==
LOC: RADUSWWP 07:41
PROVIDERS: ATTEND Family Medicine
DX: R94.5 Abnormal results of liver function studies (principal)
CPT/HCPCS: 76700

== ENCOUNTER → 2023-10-16 | Outpatient (CLI) | payer BC ==
[2023-10-17 06:08] LABS: Basophils # (A) 0.05 X 10*3/uL (0.00-0.10); Basophils % (A) 0.7 %; Eosinophils # (A) 0.15 X 10*3/uL (0.04-0.35); Eosinophils % (A) 2.1 %; HCT 46.3 % (39.6-50.0); HGB 15.6 g/dL (13.0-17.0); Lymphocytes # (A) 2.34 X 10*3/uL (0.90-5.00); Lymphocytes % (A) 32.1 %; MCH 32.6 pg (27.0-32.0); MCHC 33.7 g/dL (32.0-37.0); MCV 96.9 FL (80.0-97.0); Mean Platelet Volume 10.9 FL (9.5-12.2); Monocytes % (A) 8.2 %; NRBC Per 100 WBC 0 X 10*3/uL (0.00-0.01); Neutrophils # (A) 4.14 X 10*3/uL (1.80-7.70); Neutrophils % (A) 56.6 %; Platelet Count 203 X 10*3/uL (140-440); RBC 4.78 X 10*6/uL (4.40-5.60); RDW 12.6 % (11.5-14.5)
== END | disposition home or self-care (01) ==
LOC: LABWHC1 11:47
PROVIDERS: ATTEND Family Medicine
DX: I10 Essential (primary) hypertension (principal); E11.9 Type 2 diabetes mellitus without complications; Z71.3 Dietary counseling and surveillance
CPT/HCPCS: 36415; 85025